=== PATIENT | female | born 1980 | race Caucasian/White ===

== ENCOUNTER 2020-03-05 14:38 | Outpatient (CLI) | payer OTHER ==
[2020-03-08] MEDS ORDERED: EPINEPHRINE 1 MG/ML, 1ML ONE (10:27)
[2020-03-08] MEDS ORDERED: OXYTOCIN 10 UNITS/ML, 1ML ONE ×3 (10:27→12:06)
[2020-03-08] MEDS ORDERED: EPHEDRINE 50 MG/ML, 1ML ONE (10:27)
[2020-03-08] MEDS ORDERED: CEFAZOLIN 1,000 MG ONE (10:27)
[2020-03-08] MEDS ORDERED: FENTANYL PF 1000 MCG/20ML ONE (10:28)
[2020-03-08] MEDS ORDERED: FENTANYL PF 100 MCG/2ML ONE (10:30)
[2020-03-08] MEDS ORDERED: KETOROLAC 30 MG/1 ML ONE (12:05)
== END 2020-03-05 23:59 | disposition home or self-care (01) ==
LOC: CLISVCS 14:38
PROVIDERS: ATTEND Anesthesiology
DX: Z02.9 Encounter for administrative examinations, unspecified (principal)

== ENCOUNTER 2020-03-08 07:18 | Inpatient (IN) | payer OTHER ==
[~2020-03-08] VITALS: Ht 165.1 cm; Wt 92.3 kg
[2020-03-08 08:14] VITALS: BP 130/83
[2020-03-08] MEDS ORDERED: LACTATED RINGERS 500 ML IVBOLUS ONE (09:00)
[2020-03-08] MEDS ORDERED: LACTATED RINGERS 1,000 ML IV SCH (09:00)
[2020-03-08] MEDS ORDERED: FENTANYL PF 100 MCG/2ML IVPush ONE (09:00)
[2020-03-08] MEDS ORDERED: FENTANYL PF 100 MCG/2ML ONE (09:05)
[2020-03-08] MEDS ORDERED: METOCLOPRAMIDE 5 MG/ML, 2ML IV ONE (10:00)
[2020-03-08] MEDS ORDERED: SODIUM CITRATE/CITRIC ACID 30 ML UDC PO ONE (10:00)
[2020-03-08] MEDS ORDERED: ONDANSETRON 2MG/ML, 2ML IVPush ONE (10:00)
[2020-03-08 10:04] LABS: BASOPHILS % (AUTO) 0 % (0-1); EOSINOPHILS % (AUTO) 1 % (1-7); LYMPHOCYTES % (AUTO) 14 % (22-44); MEAN CORPUSCULAR HEMOGLOBIN 28.5 pg (27.0-34.8); MEAN CORPUSCULAR HGB CONC 33.4 g/dL (32.4-35.8); MEAN PLATELET VOLUME 9.7 fL (7.4-10.4); MONOCYTES % (AUTO) 5 % (2-9); NEUTROPHILS % (AUTO) 80 % (42-75); PLATELET COUNT 210 x10^3/uL (130-400); RED BLOOD COUNT 4.42 x10^6/uL (3.82-5.3); RED CELL DISTRIBUTION WIDTH 13.5 % (9.6-15.2)
[2020-03-08] MEDS ORDERED: OXYTOCIN 30U/ 0.9% NaCL 500ML 500 ML ONE (10:04)
[2020-03-08 10:08] LABS: MD NO
[2020-03-08] MEDS ORDERED: NEWBORN KIT ONE (10:23)
[2020-03-08] MEDS ORDERED: SODIUM CITRATE/CITRIC ACID 15 ML UDC ONE (10:27)
[2020-03-08] MEDS ORDERED: METOCLOPRAMIDE 5 MG/ML, 2ML ONE (10:27)
[2020-03-08] MEDS ORDERED: MISOPROSTOL 200 MCG TABLET PO PRN (13:00)
[2020-03-08] MEDS ORDERED: MORPHINE SULFATE 4 MG/ML, 1ML IVPush PRN (13:00)
[2020-03-08] MEDS ORDERED: GLYCERIN ADULT SUPP PR PRN (13:00)
[2020-03-08] MEDS ORDERED: METHYLERGONOVINE 0.2 MG/ML IM PRN (13:00)
[2020-03-08] MEDS ORDERED: BISACODYL 10 MG SUPP PR PRN (13:00)
[2020-03-08] MEDS ORDERED: CARBOPROST TROMETHAMINE 250 MCG/ML, 1ML IM PRN (13:00)
[2020-03-08] MEDS: LACTATED RINGERS 1,000 ML IV SCH ×4 (13:00→23:00)
[2020-03-08] MEDS ORDERED: OXYcodone/APAP 5/325MG TABLET PO PRN (13:00)
[2020-03-08] MEDS ORDERED: OXYcodone IR 5MG TABLET PO PRN (13:00)
[2020-03-08] MEDS ORDERED: TRANEXAMIC ACID 100 MG/ML, 10ML IV ONE (13:00)
[2020-03-08] MEDS ORDERED: IBUPROFEN 800 MG TABLET PO PRN (13:00)
[2020-03-08] MEDS ORDERED: ACETAMINOPHEN 325 MG TABLET PO PRN (13:00)
[2020-03-08] MEDS ORDERED: MISOPROSTOL 200 MCG TABLET ONE (13:17)
[2020-03-08] MEDS: OXYTOCIN 30U/ 0.9% NaCL 500ML 500 ML IV SCH ×2 (13:50→23:00)
[2020-03-08] MEDS ORDERED: METHYLERGONOVINE 0.2 MG/ML IM ONE (13:59)
[2020-03-08 14:47] VITALS: BP 129/84
[2020-03-08] MEDS: OXYcodone/APAP 5/325MG TABLET PO PRN ×2 (16:17→20:19)
[2020-03-08 17:58] VITALS: BP 123/83
[2020-03-08] MEDS: KETOROLAC 30 MG/1 ML IV SCH ×2 (18:00→23:45)
[2020-03-08 19:59] LABS: BASOPHILS % (AUTO) 0 % (0-1); EOSINOPHILS % (AUTO) 0 % (1-7); LYMPHOCYTES % (AUTO) 10 % (22-44); MD NO; MEAN CORPUSCULAR HEMOGLOBIN 28.4 pg (27.0-34.8); MEAN CORPUSCULAR HGB CONC 33.3 g/dL (32.4-35.8); MEAN PLATELET VOLUME 9.8 fL (7.4-10.4); MONOCYTES % (AUTO) 5 % (2-9); NEUTROPHILS % (AUTO) 84 % (42-75); PLATELET COUNT 175 x10^3/uL (130-400); RED CELL DISTRIBUTION WIDTH 13.4 % (9.6-15.2)
[2020-03-08 20:00] VITALS: BP 115/78
[2020-03-08] MEDS: DOCUSATE 100 MG CAPSULE PO PRN (20:19)
[2020-03-08] MEDS: SIMETHICONE 80 MG CHEW TAB PO PRN (20:20)
[2020-03-09] VITALS: BP 111/75
[2020-03-09] MEDS: OXYcodone/APAP 5/325MG TABLET PO PRN ×5 (00:35→22:01)
[2020-03-09 04:30] VITALS: BP 110/73
[2020-03-09] MEDS: LACTATED RINGERS 1,000 ML IV SCH ×5 (05:00→21:00)
[2020-03-09] MEDS: KETOROLAC 30 MG/1 ML IV SCH ×3 (06:06→18:20)
[2020-03-09 07:45] VITALS: BP 117/68
[2020-03-09] MEDS: PRENATAL VIT/IRON/FA 1 EACH TABLET PO SCH (08:27)
[2020-03-09] MEDS: OXYTOCIN 30U/ 0.9% NaCL 500ML 500 ML IV SCH ×2 (08:27→19:00)
[2020-03-09] MEDS: DOCUSATE 100 MG CAPSULE PO PRN ×2 (08:27→22:00)
[2020-03-09 19:25] VITALS: BP 122/83
[2020-03-09] MEDS: SIMETHICONE 80 MG CHEW TAB PO PRN (22:00)
[2020-03-10] MEDS: KETOROLAC 30 MG/1 ML IV SCH ×3 (00:20→10:15)
[2020-03-10] MEDS: OXYTOCIN 30U/ 0.9% NaCL 500ML 500 ML IV SCH (05:00)
[2020-03-10] MEDS: LACTATED RINGERS 1,000 ML IV SCH ×2 (05:00)
[2020-03-10 08:00] VITALS: BP 131/86
[2020-03-10] MEDS: PRENATAL VIT/IRON/FA 1 EACH TABLET PO SCH (09:27)
[2020-03-10] MEDS: OXYcodone/APAP 5/325MG TABLET PO PRN (09:27)
[2020-03-10] MEDS: DOCUSATE 100 MG CAPSULE PO PRN (09:27)
[2020-03-10] MEDS ORDERED: DOCU-131 PO (10:40)
[2020-03-10] MEDS ORDERED: OXYC10TA6 PO (10:40)
[2020-03-10] MEDS ORDERED: IBUP-1222 PO (10:40)
[2020-03-10] MEDS ORDERED: ACET325T14 PO (10:41)
[2020-03-10] MEDS ORDERED: IBUPROFEN 600 MG TABLET PO PRN (13:00)
== END 2020-03-10 12:09 | disposition home or self-care (01) | DRG 785 ==
LOC: LDOP 07:18 → LDIP 09:44 → 2NW 14:34
PROVIDERS: ADMIT Student in an Organized Health Care Education/Training Program; ATTEND Student in an Organized Health Care Education/Training Program
PROC: 10D00Z1 Extraction of Products of Conception, Low, Open Approach (ICD-10-PCS; principal; 2020-03-08)
PROC: 0UB50ZZ Excision of Right Fallopian Tube, Open Approach (ICD-10-PCS; 2020-03-08)
DX: O34.211 Maternal care for low transverse scar from previous cesarean delivery (principal); Z20.822 Contact with and (suspected) exposure to COVID-19; Z30.2 Encounter for sterilization; Z37.0 Single live birth; Z3A.38 38 weeks gestation of pregnancy; Z80.3 Family history of malignant neoplasm of breast; Z88.5 Allergy status to narcotic agent
CPT/HCPCS: 36415; 85025; 86592; 86850; 86900; 87635; 88305; G0378; J0171; J0690; J1885; J3010; J7120; J2210; J2590; J2765